=== PATIENT | female | born 1945 | race African-American/Black ===

== ENCOUNTER → 2016-09-09 | Outpatient (CLI) | payer MEDICARE, OTHER ==
[~2016-09-09] MED LIST: CALC-192 PO; CIPR500T87 PO; HYDR12.53 PO; HYDR25TA6 PO; IBUP800T PO; METR500T PO; POLY17PO5 NG
[2016-09-09 10:59] LABS: ASPARTATE AMINO TRANSFERASE 9 U/L (15-37); BLOOD UREA NITROGEN 21 mg/dL (7-18)
== END | disposition home or self-care (01) ==
LOC: STAR 09:44
PROVIDERS: ATTEND Otolaryngology
DX: Z01.818 Encounter for other preprocedural examination (principal); R94.31 Abnormal electrocardiogram [ECG] [EKG]; E07.9 Disorder of thyroid, unspecified
CPT/HCPCS: 36415; 80053; 93005

== ENCOUNTER 2016-09-15 06:20 | Inpatient (IN) | payer MEDICARE ==
[~2016-09-15] VITALS: Ht 170.2 cm; Wt 91.0 kg
[~2016-09-15 06:20] MED LIST changes: +IBUP-1223 PO; -IBUP800T PO
[2016-09-15] MEDS ORDERED: LACTATED RINGERS 1,000 ML IV SCH (07:22)
[2016-09-15] MEDS ORDERED: LIDOCAINE/PF 1.5%-EPI 1:200K, 30ML ONE (08:41)
[2016-09-15] MEDS ORDERED: BACITRACIN OINT 500U/GM, 15 GM ONE (08:42)
[2016-09-15] MEDS ORDERED: FENTANYL PF 250 MCG/5ML ONE (08:46)
[2016-09-15] MEDS ORDERED: PROPOFOL 10 MG/ML, 20ML ONE (08:51)
[2016-09-15] MEDS ORDERED: ROCURONIUM 10 MG/ML ONE (08:51)
[2016-09-15] MEDS ORDERED: ONDANSETRON 2MG/ML, 2ML ONE (08:51)
[2016-09-15] MEDS ORDERED: KETOROLAC 30 MG/1 ML ONE (08:51)
[2016-09-15] MEDS ORDERED: CEFAZOLIN 1,000 MG ONE (08:51)
[2016-09-15] MEDS ORDERED: DEXAMETHASONE 4 MG/ML, 1ML ONE (08:51)
[2016-09-15] MEDS ORDERED: EPHEDRINE 50 MG/ML, 1ML ONE (08:51)
[2016-09-15] MEDS ORDERED: hydrALAzine 20 MG/ML, 1ML IV PRN (09:30)
[2016-09-15] MEDS ORDERED: HYDROmorphone 1 MG/ML, 1ML IV PRN (09:30)
[2016-09-15] MEDS ORDERED: OXYcodone 5 MG/5 ML ORAL.SOL UDC PO PRN (09:30)
[2016-09-15] MEDS ORDERED: METOPROLOL 1 MG/ML, 5ML IV PRN (09:30)
[2016-09-15] MEDS ORDERED: ACETAMINOPHEN 325 MG TABLET PO PRN ×2 (09:30→14:00)
[2016-09-15] MEDS ORDERED: PROMETHAZINE 25 MG/ML, 1ML IV PRN (09:30)
[2016-09-15] MEDS ORDERED: ALBUTEROL SULFATE 2.5 MG/3 ML NPPB PRN (09:30)
[2016-09-15] MEDS ORDERED: FENTANYL PF 100 MCG/2ML ONE (11:42)
[2016-09-15] MEDS ORDERED: ACETAMINOPHEN 650 MG/20.3 ML UDC ONE (11:42)
[2016-09-15] MEDS ORDERED: OXYcodone 5 MG/5 ML ORAL.SOL UDC ONE (11:42)
[2016-09-15] MEDS: FENTANYL PF 100 MCG/2ML IV PRN ×2 (11:45→12:18)
[2016-09-15 13:00] VITALS: BP 128/60
[2016-09-15] MEDS ORDERED: ACETAMINOPHEN 650 MG SUPP PR PRN (14:00)
[2016-09-15] MEDS ORDERED: morphine SULFATE 10 MG/ML, 1ML IV PRN (14:00)
[2016-09-15] MEDS ORDERED: DIPHENHYDRAMINE 25 MG CAPSULE PO PRN (14:00)
[2016-09-15] MEDS ORDERED: ONDANSETRON 2MG/ML, 2ML IV PRN (14:00)
[2016-09-15] MEDS ORDERED: ENALAPRILAT 1.25 MG/ML, 2ML IV PRN (14:00)
[2016-09-15] MEDS ORDERED: DIPHENHYDRAMINE 50 MG/ML, 1ML IV PRN (14:00)
[2016-09-15] MEDS: D5%-0.45% NACL 1,000 ML IV SCH ×2 (16:06→23:06)
[2016-09-15] MEDS: CALCIUM CARBONATE 500 MG TAB.CHEW PO SCH (16:07)
[2016-09-15] MEDS: HYDROcodone/APAP 5/325 TABLET PO PRN (18:28)
[2016-09-15 20:00] VITALS: BP 122/57
[2016-09-16] MEDS: HYDROcodone/APAP 5/325 TABLET PO PRN ×2 (00:11→07:39)
[2016-09-16 00:19] VITALS: BP 102/58
[2016-09-16 02:47] VITALS: BP 105/60
[2016-09-16 07:26] VITALS: BP 125/63
[2016-09-16] MEDS: D5%-0.45% NACL 1,000 ML IV SCH (07:29)
[2016-09-16] MEDS: CALCIUM CARBONATE 500 MG TAB.CHEW PO SCH ×2 (07:39→11:26)
[2016-09-16] MEDS ORDERED: HYDROCHLOROTHIAZIDE 25 MG TABLET PO SCH (09:00)
[2016-09-16] MEDS ORDERED: BACITRACIN OINT 500U/GM, 15 GM TP SCH (09:00)
[2016-09-16 12:50] VITALS: BP 117/68
[2016-09-16] MEDS ORDERED: HYDR-3240 PO (14:02)
[2016-09-16] MEDS ORDERED: LEVO112T4 PO (14:03)
== END 2016-09-16 14:35 | disposition home or self-care (01) | DRG 627 ==
LOC: OUT 06:20 → 4NOR 13:02 → OUT 13:25 → 4NOR 13:25
PROVIDERS: ADMIT Otolaryngology; ATTEND Otolaryngology
PROC: 0GTK0ZZ Resection of Thyroid Gland, Open Approach (ICD-10-PCS; principal; 2016-09-16)
DX: C73 Malignant neoplasm of thyroid gland (principal); I10 Essential (primary) hypertension; E04.2 Nontoxic multinodular goiter; Z87.891 Personal history of nicotine dependence
CPT/HCPCS: 36415; 82310; 88307; C1729; J0690; J1100; J1885; J2405; J2704; J3010; J3490; C1760

== ENCOUNTER → 2017-12-23 | Outpatient (CLI) | payer MEDICARE ==
[~2017-12-23] MED LIST changes: +HYDR-3240 PO; +LEVO112T4 PO
== END | disposition home or self-care (01) ==
LOC: CVU 14:06
PROVIDERS: ATTEND Internal Medicine Cardiovascular Disease
DX: M79.605 Pain in left leg (principal); R60.9 Edema, unspecified; I10 Essential (primary) hypertension; F17.210 Nicotine dependence, cigarettes, uncomplicated
CPT/HCPCS: 93922